=== PATIENT | male | born 1950 | race Caucasian/White ===

== ENCOUNTER → 2019-11-29 12:13 | Outpatient (CLI) | payer MEDICARE, SELFPAY ==
--- NOTE | ~2019-11-29 | XR_ITS ---
XR lumbar spine 2-3V 11/29/2019 13:47 Indication: Low back pain Procedure: 3 views of the lumbar spine Comparison: No prior studies for comparison. Findings: There is dextrocurvature of the thoracic spine. There is disc narrowing and endplate degene rative change at multiple levels. There is grade 1 degenerative spondylolisthesis at L4-5. No acute f racture or traumatic malalignment. Sacral foramen are symmetric. Impression: 1: Severe lumbar spondylosis with dextroscoliosis. Reviewed, dictated and finalized at location B. CLEANER Impression: 1: Severe lumbar spondylosis with dextroscoliosis.
== END ==
PROVIDERS: PCP Internal Medicine; Visit Provider Internal Medicine
DX: M47.896 Other spondylosis, lumbar region (principal)
CPT/HCPCS: 72100

== ENCOUNTER 2020-06-26 01:44 | Outpatient (CLI) | payer MEDICARE, SELFPAY ==
[2020-06-26 18:20] LABS: SARS-CoV-2 RNA PCR Negative
== END 2020-06-26 01:45 | disposition home or self-care (01) ==
LOC: ANHCOVIDDT 01:45
PROVIDERS: PCP Internal Medicine; Visit Provider Surgery
DX: Z01.812 Encounter for preprocedural laboratory examination (principal); Z11.59 Encounter for screening for other viral diseases
CPT/HCPCS: 87635; C9803; U0003

== ENCOUNTER 2020-06-26 08:50 | Outpatient (CLI) | payer MEDICARE, SELFPAY ==
--- NOTE | 2020-06-26 08:53 | ECG_ITS ---
Measurements Intervals [place] Rate: 69 P: 65 IA: 170 QRS: 72 QRSD: 166 T: 36 QT: 423 QTc: 455 Interpretive Statements SINUS RHYTHM RIGHT BUNDLE BRANCH BLOCK ABNORMAL ECG Electronically Signed On 06-26-2020 9:05:13 CDT by Isaiah Baker D.O.
== END 2020-06-26 08:51 | disposition home or self-care (01) ==
PROVIDERS: PCP Internal Medicine; Visit Provider Surgery
DX: Z01.818 Encounter for other preprocedural examination (principal); K40.90 Unilateral inguinal hernia, without obstruction or gangrene, not specified as recurrent; I10 Essential (primary) hypertension; R94.31 Abnormal electrocardiogram [ECG] [EKG]
CPT/HCPCS: 36415; 86850; 86900; 86901; 87635; 93005; C9803; U0003

== ENCOUNTER 2020-06-28 01:16 | Day surgery (SDC) | payer MEDICARE, SELFPAY ==
[2020-06-20 11:29] VITALS: BMI 25.1
[2020-06-28 09:33] VITALS: BP 126/71; PULSE 60; RESP 12; TEMP 36.8; O2SAT 100
--- NOTE | 2020-06-28 09:54 | WPDANESEPPF ---
Anes - Initial Pre Proc Eval Procedure: Operation Date: 06/28/20 11:00 Proposed Procedures p Laparoscopic Right Inguinal Hernia Repair With Mesh, Davinci Assisted - Seth Mane DO s Recurrent Ventral Hernia Repair - Seth Mane DO Date/Time: 06/28/20 09:54 Surgeon: Seth Mane DO Pre Op Diagnosis: Right Inguinal Hernia,Recurrent Ventral Hernia Patient Data Age: 69 Gender: M Height: 6 ft Weight: 83.9 kg Last Vital Signs Temp 36.8 C 06/28/20 09:33 Pulse 60 06/28/20 09:33 Resp 12 06/28/20 09:33 BP 126/71 06/28/20 09:33 Pulse Ox 100 06/28/20 09:33 Allergies Allergy/AdvReac Type Severity Reaction Status Date / Time Penicillins Allergy Mild rash Verified 06/20/20 11:04 Home Medications Medication Instructions Recorded Confirmed Type montelukast 10 mg tablet 10 mg PO DAILY #90 tablet 01/24/20 06/20/20 Rx diclofenac 75 mg-misoprostol 200 1 tablet PO BID 90 Days #180 tablet 02/08/20 06/20/20 Rx mcg tablet,immediate,delayed release paroxetine HCl 40 mg tablet 40 mg PO DAILY #90 tablet 02/08/20 06/28/20 Rx pregabalin 75 mg capsule 75 mg PO BID 30 Days #60 cap 04/03/20 06/20/20 Rx perindopril erbumine 8 mg tablet 8 mg PO DAILY #90 tablet 05/11/20 06/20/20 Rx albuterol sulfate 90 mcg/actuation 1 inhalation INHALATION Q4H PRN 05/15/20 06/28/20 Rx aerosol inhaler #18 gm alprazolam [Xanax] 0.5 mg PO BID PRN 06/20/20 06/28/20 History fluticasone 250 mcg-salmeterol 50 1 inh INHALATION Q12H #60 each 06/26/20 06/28/20 Rx mcg/dose blistr powdr for inhalation mometasone 50 mcg/actuation nasal 1 spray NASAL DAILY #17 gm 06/27/20 06/28/20 Rx spray tramadol 50 mg tablet 50 mg PO Q12H PRN 30 Days #60 08/11/20 08/12/20 Rx tablet Patient hx anesthesia problems: none Family hx anesthesia problems: none PMFSH Past Medical History Medical History Encounter for blood transfusion Hx of staphylococcal infection Indirect inguinal hernia Lumbar spondylosis Surgical History Surgical History H/O ventral hernia repair Hx of total knee replacement Hx of total knee replacement Family History Family History Father Family history of congestive heart failure Mother Family history of congestive heart failure Heart disease Sibling Hypothyroid Social History Social History Smoking status: Current every day smoker Tobacco type: cigarettes Second hand tobacco smoke exposure: Yes Additional smoking assessment comments: 1/2PK/DAY/MANY YEARS Alcohol intake: former Substance use: current Substance use type: marijuana Living arrangements: with family Gender identity (if verbalized by the patient): Male Spiritual care concerns: No Anes - Eval Final PreProcedure Day of Procedure 06/28/20 09:54 Patient weight: normal Heart: regular rate and rhythm Lungs: clear to auscultation Airway: Mallampati scale class II Neurological: alert and oriented Last oral intake: >/= 8 hours ASA classification: III Emergent: no Anesthetic plan: proceed Anesthesia type and monitoring: general ETT and standard monitoring Informed Consent: The patient's anesthetic plan and its attendant risks and benefits were discussed with the patient/family/POA. Questions were solicited and answers provided to the satisfaction of the patient/family/POA.
[2020-06-28] MEDS: LACTATED RINGERS 1,000 ML 30 ML IV CONT ×3 (10:10→15:08)
[2020-06-28] MEDS: ACETAMINOPHEN 500 MG TABLET 1000 MG PO (10:13)
[2020-06-28] MEDS: KETOROLAC 15 MG/ML VIAL (*BKC) IV PUSH (10:13)
--- NOTE | 2020-06-28 10:30 | WPDHPUPDATE1 ---
History and Physical Update Update Date/Time: 06/28/20 10:30 History and Physical has been reviewed, including an updated exam of the patient. There are NO changes in the patient's condition. Risks, benefits, and alternatives have been discussed and questions answered. Patient agrees to proceed with procedure.
[2020-06-28] MEDS: ceFAZolin 2 GM/D5W 50 ML 2 GM/50 ML BAG IVPB (10:58)
[2020-06-28] MEDS: BUPIVACAINE/EPINEPHRINE 0.5% 30 ML VIAL INFILTRATE (11:32)
--- NOTE | 2020-06-28 13:24 | PM.PROC ---
Procedure Note - Detailed Date of procedure: 06/28/20 Pre-op diagnosis: Right Inguinal Hernia,Recurrent Ventral Hernia Post-op diagnosis: same Procedure performed: 1. Open recurrent reducible ventral hernia repair with Parietex ventral patch 2. Removal of mesh foreign body 3. Laparoscopic Right inguinal hernia repair with Progrip mesh, da Bailee assisted Description of procedure: Procedure as well as risks, benefits, and alternatives were discussed with the patient. Written consent was obtained and placed in chart prior to procedure. Patient was brought back to surgical suite. he was placed supine on operating table. Time-out was done to confirm patient and procedure. he was then intubated by Anesthesia Department. his abdomen was prepped and draped in sterile fashion using chlorhexidine prep. 0.5% bupivacaine with epinephrine was infiltrated at each location for incision. a 3 cm curvilinear incision was made just superior to the umbilicus using a 15 blade scalpel. Electrocautery was used for hemostasis. Careful dissection was then carried out along the umbilical stalk down to the linea alba. The umbilical stalk was lifted from the fascia carefully using electrocautery. The hernia sac was identified and carefully dissected free using electrocautery. The hernia sac was then transected and excised using electrocautery. The hernia defect was identified just inferior and to the right of the umbilical stalk. This measured approximately 1 cm in diameter. The previous mesh that was placed was identified just to the left of this and centered on the umbilicus. A 12 millimeter trocar was inserted through the hernia defect and carbon dioxide insufflation was used to create a pneumoperitoneum. A camera was inserted and the abdominal cavity was inspected. The patient was placed in slight Trendelenburg position. An 8 millimeter incision was made on the right lateral abdomen and an 8 millimeter trocar was inserted under direct visualization. Another 8 millimeter incision was made in the left lateral abdomen and an 8 millimeter trocar was inserted under direct visualization. The robotic arms were brought up to the patient's bedside and secured to the ports. The camera and instruments were inserted. I then moved over to the robotic console and took control of the camera and instruments. After careful inspection of the abdominal cavity, I began scoring the peritoneum along the right lower quadrant using scissors with electrocautery. The preperitoneal plane was entered and this was carefully dissected caudally along the inferior epigastric vessels. Careful dissection with scissors with electrocautery and blunt dissection was used to continue this dissection. I dissected far enough laterally to allow for mesh placement, and also dissected medially to identify the pubic arch and Geraldo's ligament. The hernia sac was identified and carefully dissected posteriorly. The cord contents were also identified and the peritoneum was carefully dissected far enough posteriorly to allow for mesh placement. Once an adequate pocket was created, I then placed the mesh within the preperitoneal pocket and carefully unfolded it. The mesh was centered on the hernia defect with adequate overlap circumferentially. The inferior edge of the mesh was inspected to ensure that it was far enough away from the peritoneal edge. The mesh appeared in proper position overlying the entire myopectineal orifice. The peritoneum was then closed over the mesh using a 3-0 V-lock running absorbable suture. The robotic instruments were removed. The robotic arms were disengaged from the ports and moved away from the bedside. The patient was flattened out in bed, the ports were removed under direct visualization, and the pneumoperitoneum was released. I then moved my attention back to the recurrent ventral hernia. A preperitoneal pocket was created around the hernia defect using blunt dissection and elect
[2020-06-28 13:25] VITALS: BP 112/64; PULSE 61; RESP 12; TEMP 36.2; O2SAT 100
[2020-06-28 13:40] VITALS: BP 114/66; PULSE 64; RESP 12; O2SAT 100
[2020-06-28 13:55] VITALS: BP 140/71; PULSE 65; RESP 12; O2SAT 100
[2020-06-28 14:10] VITALS: BP 125/70; PULSE 59; RESP 16
[2020-06-28 14:40] VITALS: BP 157/78; PULSE 59; RESP 14
== END 2020-06-28 16:26 | disposition home or self-care (01) ==
PROVIDERS: PCP Internal Medicine; Visit Provider Surgery
PROC: 8E0Y4CZ Robotic Assisted Procedure of Lower Extremity, Percutaneous Endoscopic Approach (ICD-10-PCS; CPT 49650; principal; 2020-06-28 11:00)
PROC: 0WQF0ZZ Repair Abdominal Wall, Open Approach (ICD-10-PCS; CPT 49565; 2020-06-28 11:00)
DX: K40.90 Unilateral inguinal hernia, without obstruction or gangrene, not specified as recurrent (principal); K43.2 Incisional hernia without obstruction or gangrene; F17.210 Nicotine dependence, cigarettes, uncomplicated; F12.90 Cannabis use, unspecified, uncomplicated
CPT/HCPCS: 49565; 49568; 49650; S2900; 88300; A9270; C1781; C9290; J0330; J0690; J1100; J1170; J1885; J2250; J2370; J2405; J2704; J2710; J3010; J7120

== ENCOUNTER → 2021-02-14 09:27 | Outpatient (CLI) | payer MEDICARE, SELFPAY ==
--- NOTE | ~2021-02-14 | CT_ITS ---
EXAMINATION: CT pelvis wo con DATE: 02/14/2021 09:44 INDICATION: Pelvic and perineal pain. TECHNIQUE: Computed tomography (CT) of the pelvis was performed without intravenous contrast. Automat ed exposure control and iterative reconstruction technique were employed.The dose-length product was 508.88 mGy-cm. COMPARISON: None FINDINGS: Visualized caudal aspect of the right hepatic lobe, fundus of the gallbladder and lower poles of both kidneys all appear normal. There is mild diverticulosis along the sigmoid and visualized lower desce nding colon without adjacent inflammatory change to suggest diverticulitis. Normal appendix. Visualiz ed small bowel is unremarkable with no obstruction. Diffuse bladder wall thickening. Mild prostatomeg petar measuring 4.3 x 3.8 cm. Small bilateral fat-containing inguinal hernias. Right hydrocele. No free intraperitoneal gas or fluid. No pathologically enlarged abdominal or pelvic lymphadenopathy. Severe lower lumbar spondylosis with 7 mm anterolisthesis L4 on L5. 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 IMPRESSION: 1. Diffuse wall thickening of the bladder with differential including cystitis either acute or chroni c or chronic outlet obstruction from the mildly enlarged prostate. 2. Small bilateral fat-containing inguinal hernias and right hydrocele. 3. Mild diverticulosis. 4. Severe lumbar spondylosis including 7 mm anterolisthesis L4 on L5. Reviewed, dictated and finalized at location A. IMPRESSION: 1. Diffuse wall thickening of the bladder with differential including cystitis either acute or chronic or chronic outlet obstruction from the mildly enlarged prostate. 2. Small bilateral fat-containing inguinal hernias and right hydrocele. 3. Mild diverticulosis. 4. Severe lumbar spondylosis including 7 mm anterolisthesis L4 on L5.
== END ==
PROVIDERS: PCP Internal Medicine; Visit Provider Surgery
DX: N43.3 Hydrocele, unspecified (principal); N40.0 Benign prostatic hyperplasia without lower urinary tract symptoms; K57.30 Diverticulosis of large intestine without perforation or abscess without bleeding; M47.816 Spondylosis without myelopathy or radiculopathy, lumbar region; M16.0 Bilateral primary osteoarthritis of hip; M47.898 Other spondylosis, sacral and sacrococcygeal region
CPT/HCPCS: 72192